=== PATIENT | female | born 1940 | race Caucasian/White ===

== ENCOUNTER 2021-08-07 00:42 | Inpatient (IN) | payer MEDICARE, OTHER ==
[~2021-08-07] VITALS: Ht 170.2 cm; Wt 60.3 kg
[~2021-08-07 00:42] MED LIST: ASPI-495 PO; HYDR500C; VALS40TA4; [UNRECOGNIZED DRUG - REMARK]
[2021-08-07] MEDS ORDERED: ASPIRIN 325 MG TABLET PO ONE (01:00)
--- NOTE | 2021-08-07 01:04 | NUR ---
BIBRA FROM HOME, PT A/O X 3, C/O HIGH BP AT HOME, NOW HAS LEFT SIDED CP WITH HEADACHE.
--- NOTE | 2021-08-07 01:14 | NUR ---
COVID SWAB COLLECTED AND SENT
--- NOTE | 2021-08-07 01:14 | NUR ---
LABS COLLECTED AND SENT
[2021-08-07 01:31] LABS: BASOPHILS % (AUTO) 0.1 % (0.0-2.0); EOSINOPHILS % (AUTO) 0.2 % (0.0-6.0); HEMATOCRIT 35 % (33-45); HEMOGLOBIN 11.8 g/dL (11.5-14.8); LYMPHOCYTES # (AUTO) 0.6 K/uL (0.8-4.8); MEAN CORPUSCULAR HGB CONC 34 g/dl (31.0-36.0); MEAN CORPUSCULAR VOLUME 123 fL (82-100); MONOCYTES # (AUTO) 0.1 K/uL (0.1-1.30); MONOCYTES % (AUTO) 0.9 % (2.0-12.0); NEUTROPHILS # (AUTO) 7.3 K/uL (1.8-8.9); NEUTROPHILS % (AUTO) 90.8 % (43.0-81.0); PLATELET COUNT (AUTO) 265 K/uL (150-450); RED BLOOD CELL COUNT(AUTO) 2.86 MIL/uL (4.0-5.2)
[2021-08-07 01:43] LABS: CALCIUM, SERUM 8.6 mg/dL (8.5-10.1); CARBON DIOXIDE 28 mmol/L (21-32); CHLORIDE 102 mmol/L (98-107); CREATININE 0.7 mg/dL (0.6-1.3); GLUCOSE 137 mg/dL (74-106); POTASSIUM 3.7 mmol/L (3.5-5.1); SODIUM SERUM 137 mmol/L (136-145); UREA NITROGEN, BLOOD 23 mg/dL (7-18)
[2021-08-07 01:50] LABS: D-DIMER 0.53 mg/L(FEU (0.17-0.50)
[2021-08-07 01:53] LABS: ALANINE AMINOTRANSFERASE 32 U/L (12-78); ALBUMIN 3.4 g/dL (3.4-5.0); ALKALINE PHOSPHATASE 69 U/L (46-116); ASPARTATE AMINOTRANSFERASE 19 U/L (15-37); BILIRUBIN,DIRECT 0.2 mg/dL (0.0-0.2); BILIRUBIN,TOTAL 0.7 mg/dL (0.2-1.0); TOTAL PROTEIN, SERUM 6.9 g/dL (6.4-8.2)
--- NOTE | 2021-08-07 02:11 | NUR ---
Pt out to CT
--- NOTE | 2021-08-07 04:09 | NUR ---
REPORT GIVEN TO MICHAEL DODSON
--- NOTE | 2021-08-07 04:12 | NUR ---
PT TRANSFERRED VIA ACLS
[2021-08-07 04:25] VITALS: BP 127/64
--- NOTE | 2021-08-07 04:25 | NUR ---
RN NOTES ADMITTED A 81 Y/O FEMALE PATIENT FROM HOME WITH CC OF HIGH BP AND CHEST PAIN FROM ER VIA GURNEY. PATIENT IS A/O X4 ABLE TO MAKE NEEDS KNOWN BELARUSIAN SPEAKING. VITAL SIGNS TAKEN AND RECORDED AFEBRILE. SAFELY TRANSFER TO BED VIA GURNEY. NO CHEST PAIN NO SOB NOTED AT THIS TIME. PATIENT WITH IV ACCESS AR L AC #22 PATENT FLUSHES WELL. WITH OXYGEN INHALATION AT 2 LPM SATING 100%. COMPLETE BODY ASSESSMENT DONE NO SKIN ISSUE NOTED. BELONGINGS ACCOUNTED AND CHECKED. ALL SAFETY MEASURES IN PLACE AT ALL TIMES, HOB ELEVATED. CALL LIGHT WITHIN REACH.WILL CLOSELY MONITOR THE PATIENT
[2021-08-07] MEDS ORDERED: NITROGLYCERIN 0.4 MG/TAB BOTTLE SL PRN (04:30)
[2021-08-07] MEDS ORDERED: MAGNESIUM HYDROXIDE 30 ML UDC PO PRN (04:30)
[2021-08-07] MEDS ORDERED: MAG HYDROX/AL HYDROX/SIMETH 30 ML UDC PO PRN (04:30)
[2021-08-07] MEDS ORDERED: ONDANSETRON HCL/PF 4 MG/2 ML VIAL IVP PRN (04:30)
[2021-08-07] MEDS ORDERED: HYDROCODONE/APAP 5/325MG TABLET PO PRN (04:30)
[2021-08-07] MEDS ORDERED: ACETAMINOPHEN 325 MG TABLET PO PRN (04:30)
[2021-08-07] MEDS ORDERED: MORPHINE SULFATE INJ 2 MG/ML DISP.SYRIN IV PRN (04:30)
[2021-08-07] MEDS ORDERED: Z GUARD REMEDY 4 OZ OINT TP PRN (04:30)
--- NOTE | 2021-08-07 07:01 | NUR ---
RN NOTES PATIENT REMAINS STABLE THIS SHIFT NO SIGNIFICANT CHANGES IN HEALTH CONDITION. STILL WITH IV ACCESS AT L AC PATENT FLUSHES WELL. ALL SAFETY MEASURES IN PLACE AT ALL TIMES. HOB ELEVATED. CALL LIGHT WITHIN REACH. WILL ENDORSED TO MORNING RN FOR MURIEL
--- NOTE | 2021-08-07 07:14 | NUR ---
RN OPENING NOTES RECEIVED PT IN BED AWAKE, A/O X 3 MONTSERRATIAN SPEAKING. PT IS ON 2L O2 VIA NC SATING AT 98%. IV ACCESS NOTED ON L AC 22G. ALL SAFETY MEASURES IN PLACE, BED IN LOWEST LOCKED POSITION, SR UP X 2, CALL LIGHT WITHIN REACH. WILL CONTINUE TO MONITOR THROUGHOUT SHIFT.
[2021-08-07] MEDS ORDERED: DULO30CA52 PO (07:27)
[2021-08-07] MEDS ORDERED: HYDR500C PO (07:27)
[2021-08-07] MEDS ORDERED: FAMO20TA8 PO (07:27)
[2021-08-07] MEDS ORDERED: DEXL60CA3 PO (07:27)
[2021-08-07] MEDS ORDERED: VALA500T40 PO (07:27)
[2021-08-07] MEDS ORDERED: METO50TA16 PO (07:27)
[2021-08-07] MEDS ORDERED: CELE-85 PO (07:27)
[2021-08-07] MEDS ORDERED: PREG25CA51 PO (07:27)
[2021-08-07] MEDS ORDERED: VALS160T2 PO (07:27)
[2021-08-07] MEDS ORDERED: ICOS1CAP PO (07:27)
[2021-08-07] MEDS ORDERED: FERR325T24 PO (07:27)
[2021-08-07] MEDS ORDERED: SITA1TAB2 PO (07:27)
[2021-08-07] MEDS ORDERED: COLC0.6C3 PO (07:27)
[2021-08-07] MEDS ORDERED: MAGN500T2 PO (07:27)
[2021-08-07] MEDS ORDERED: PANTOPRAZOLE 40 MG TABLET.DR PO SCH (07:30)
[2021-08-07 08:00] VITALS: BP 132/66
[2021-08-07 08:20] LABS: LYMPHOCYTES % (MANUAL) 8 % (16-48); NEUTROPHILS % (MANUAL) 92 (42-76)
[2021-08-07] MEDS ORDERED: METOPROLOL TARTRATE 50 MG TABLET PO SCH (09:00)
[2021-08-07] MEDS ORDERED: PREGABALIN 25 MG CAPSULE PO SCH (09:00)
[2021-08-07] MEDS ORDERED: ASPIRIN 81 MG TAB.CHEW PO SCH (09:00)
[2021-08-07] MEDS ORDERED: Medication Not On Formulary EA (Icosapent Ethyl (Vascepa) 2 CAP) PO SCH (09:00)
[2021-08-07] MEDS ORDERED: CELECOXIB 100 MG CAPSULE PO SCH (09:00)
[2021-08-07] MEDS ORDERED: FAMOTIDINE (20 MG) 20 MG TABLET PO SCH (09:00)
[2021-08-07] MEDS ORDERED: LINAGLIPTIN 5 MG TABLET PO SCH (09:00)
[2021-08-07] MEDS ORDERED: FERROUS SULFATE (325 MG) 325 MG/TAB TABLET PO SCH (09:00)
[2021-08-07] MEDS ORDERED: METFORMIN 500 MG TABLET PO SCH (09:00)
[2021-08-07] MEDS ORDERED: DULOXETINE HCL 30 MG CAPSULE.DR PO SCH (09:00)
[2021-08-07] MEDS ORDERED: VALACYCLOVIR HCL 500 MG TABLET PO SCH (09:00)
[2021-08-07] MEDS ORDERED: MAGNESIUM OXIDE 400 MG TABLET PO SCH (09:00)
[2021-08-07] MEDS ORDERED: COLCHICINE 0.6 MG TABLET PO SCH (09:00)
[2021-08-07] MEDS ORDERED: ASPIRIN EC 81 MG TABLET.DR PO SCH (09:00)
[2021-08-07] MEDS ORDERED: HYDROXYUREA 500 MG CAPSULE PO SCH (09:00)
[2021-08-07 09:04] LABS: THYROID STIMULATING HORMONE 4.642 uIU/mL (0.358-3.74)
[2021-08-07 09:53] VITALS: BP 132/66
--- NOTE | 2021-08-07 10:46 | NUR ---
RN NOTES PT WISHES TO LEAVE AMA. MD ROBLEDO D NOTIFIED. AMA PAPERWORK SIGNED. LATEST BP IS 129/58. DAUGHTER WILL PERFORMANCE IMPROVEMENT MANAGER PT AT APPROX 1100.
--- NOTE | 2021-08-07 11:02 | NUR ---
RN NOTES PT LEFT UNIT AT 1100 IN STABLE CONDITION, DAUGHTER PICKED UP PT AT 1102.
[2021-08-08] MEDS ORDERED: PANTOPRAZOLE 40 MG TABLET.DR PO SCH (07:30)
[2021-08-08] MEDS ORDERED: VALSARTAN 80 MG TABLET PO SCH (09:00)
== END 2021-08-07 10:57 | disposition left against medical advice (07) | DRG 313 ==
LOC: ER 00:47 → TELE1 03:19
PROVIDERS: ADMIT Internal Medicine; ATTEND Internal Medicine
DX: R07.9 Chest pain, unspecified (principal); Z20.822 Contact with and (suspected) exposure to COVID-19; I10 Essential (primary) hypertension; Z88.8 Allergy status to other drugs, medicaments and biological substances; Z79.82 Long term (current) use of aspirin; Z79.899 Other long term (current) drug therapy; D45 Polycythemia vera
CPT/HCPCS: 36415; 71045-TC; 80048-TC; 80061-TC; 80076-TC; 82962-TC; 83880; 84439-TC; 84443-TC; 84484-TC; 85025-TC; 85378-TC; 85730-TC; 87081-TC; C9803; G0378

== ENCOUNTER 2022-01-17 08:52 | Inpatient (IN) | payer MEDICARE, OTHER ==
[~2022-01-17] VITALS: Ht 170.2 cm; Wt 63.5 kg
[~2022-01-17 08:52] MED LIST changes: +CELE-85 PO; +COLC0.6C3 PO; +DEXL60CA3 PO; +DULO30CA52 PO; +FAMO20TA8 PO; +FERR325T24 PO; -HYDR500C; +HYDR500C PO; +ICOS1CAP PO; +MAGN500T2 PO; +METO50TA16 PO; +PREG25CA51 PO; +SITA1TAB2 PO; +VALA500T40 PO; +VALS160T2 PO; -VALS40TA4; -[UNRECOGNIZED DRUG - REMARK]
--- NOTE | 2022-01-17 08:52 | NUR ---
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 PT STATES A 5/10 PAIN ON P/S PT ATTACHED TO MONITOR, CHANGED INTO HOSPITAL GOWN. VITALS ARE WITHIN NORMAL LIMITS. AWAITING MD ORDERS.
--- NOTE | 2022-01-17 09:08 | NUR ---
IV ESTABLIHSED L AC 20G. LABS DRAWN AND COLLECTED AT BEDSIDE.
[2022-01-17 09:15] LABS: BASOPHILS % (AUTO) 0.1 % (0.0-2.0); EOSINOPHILS % (AUTO) 0.3 % (0.0-6.0); HEMATOCRIT 41 % (33-45); HEMOGLOBIN 13.4 g/dL (11.5-14.8); LYMPHOCYTES # (AUTO) 0.7 K/uL (0.8-4.8); LYMPHOCYTES % (AUTO) 7.6 % (20.0-44.0); MEAN CORPUSCULAR HGB CONC 33 g/dl (31.0-36.0); MEAN CORPUSCULAR VOLUME 116 fL (82-100); MONOCYTES # (AUTO) 0.1 K/uL (0.1-1.30); MONOCYTES % (AUTO) 1.2 % (2.0-12.0); NEUTROPHILS # (AUTO) 8.2 K/uL (1.8-8.9); NEUTROPHILS % (AUTO) 90.8 % (43.0-81.0); PLATELET COUNT (AUTO) 325 K/uL (150-450); RED BLOOD CELL COUNT(AUTO) 3.52 MIL/uL (4.0-5.2); WHITE BLOOD COUNT (AUTO) 9.1 K/uL (4.3-11.0)
--- NOTE | 2022-01-17 09:17 | NUR ---
MOVE SHEET SUBMITTED.
[2022-01-17 09:44] LABS: CARBON DIOXIDE 29 mmol/L (21-32); CHLORIDE 103 mmol/L (98-107); CREATININE 0.7 mg/dL (0.6-1.3); GLUCOSE 143 mg/dL (74-106); POTASSIUM 3.7 mmol/L (3.5-5.1); SODIUM SERUM 136 mmol/L (136-145); UREA NITROGEN, BLOOD 13 mg/dL (7-18)
[2022-01-17] MEDS ORDERED: ASPIRIN 81 MG TAB.CHEW ONE (09:59)
[2022-01-17] MEDS ORDERED: ASPIRIN 81 MG TAB.CHEW PO ONE (10:00)
[2022-01-17] MEDS ORDERED: Z GUARD REMEDY 4 OZ OINT TP PRN (12:00)
[2022-01-17] MEDS ORDERED: MORPHINE SULFATE INJ 2 MG/ML DISP.SYRIN IV PRN (12:00)
[2022-01-17] MEDS ORDERED: ACETAMINOPHEN 325 MG TABLET PO PRN (12:00)
[2022-01-17] MEDS ORDERED: ONDANSETRON HCL/PF 4 MG/2 ML VIAL IVP PRN (12:00)
[2022-01-17] MEDS ORDERED: TEMAZEPAM 15 MG CAPSULE PO PRN (12:00)
[2022-01-17] MEDS ORDERED: MAGNESIUM HYDROXIDE 30 ML UDC PO PRN (12:00)
[2022-01-17] MEDS ORDERED: MAG HYDROX/AL HYDROX/SIMETH 30 ML UDC PO PRN (12:00)
[2022-01-17] MEDS ORDERED: VALS160T2 PO (12:01)
[2022-01-17] MEDS ORDERED: VALA500T40 PO (12:01)
[2022-01-17] MEDS ORDERED: FAMO20TA8 PO (12:01)
[2022-01-17] MEDS ORDERED: ASPI-1420 PO (12:01)
[2022-01-17] MEDS ORDERED: DEXL60CA3 PO (12:01)
[2022-01-17] MEDS ORDERED: COLC0.6C3 PO (12:01)
[2022-01-17] MEDS ORDERED: SOLI10TA7 PO (12:01)
[2022-01-17] MEDS ORDERED: CELE-85 PO (12:01)
[2022-01-17] MEDS ORDERED: LIPA1CAP15 PO (12:01)
[2022-01-17] MEDS ORDERED: LORA-259 PO (12:01)
[2022-01-17] MEDS ORDERED: DULO30CA52 PO (12:01)
[2022-01-17] MEDS ORDERED: ALBU18HF2 IH (12:01)
[2022-01-17] MEDS ORDERED: CYCL30DR EACHEYE (12:01)
[2022-01-17] MEDS ORDERED: MECL-182 PO (12:01)
[2022-01-17] MEDS ORDERED: HYDR500C PO (12:01)
[2022-01-17] MEDS ORDERED: HYDR453.3 TD (12:01)
[2022-01-17] MEDS ORDERED: LIDO700A30 TP (12:01)
[2022-01-17] MEDS ORDERED: PROP15DR EACHEYE (12:01)
[2022-01-17] MEDS ORDERED: METO50TA16 PO (12:01)
[2022-01-17] MEDS ORDERED: CHOL100043 PO (12:01)
[2022-01-17] MEDS ORDERED: DICL100G26 TD (12:01)
[2022-01-17] MEDS ORDERED: LORA10TA7 PO (12:01)
[2022-01-17] MEDS ORDERED: MAGN500T2 PO (12:01)
[2022-01-17] MEDS ORDERED: FERR325T24 PO (12:01)
[2022-01-17] MEDS ORDERED: GABA300C PO (12:01)
[2022-01-17] MEDS ORDERED: TERB250T52 PO (12:03)
[2022-01-17] MEDS ORDERED: SITA1TAB2 PO (12:03)
[2022-01-17] MEDS ORDERED: FLUC200T PO (12:03)
[2022-01-17] MEDS ORDERED: ITRA100C2 PO (12:03)
[2022-01-17] MEDS ORDERED: MORPHINE SULFATE INJ 2 MG/ML DISP.SYRIN ONE (13:31)
--- NOTE | 2022-01-17 13:42 | NUR ---
PT REFUSED MORPHINE IV FOR PAIN; FAMILY TRANSLATED FOR PT AND STATED THAT PT DOES NOT FEEL GOOD WHEN GETTING MORPHINE.
--- NOTE | 2022-01-17 14:14 | NUR ---
SNACKS PROVIDED TO PT AT BEDSIDE, MARKY WELL
--- NOTE | 2022-01-17 16:48 | NUR ---
BED GIVEN 311-1
[2022-01-17] MEDS ORDERED: METOPROLOL TARTRATE 25 MG TABLET PO ONE (17:00)
--- NOTE | 2022-01-17 17:14 | NUR ---
REPORT GIVEN TO NEEL DODSON ROOM 311-1 FOR MURIEL
[2022-01-17] MEDS ORDERED: IOHEXOL-350 100 ML VIAL IV ONE (17:24)
[2022-01-17] MEDS ORDERED: IV NS 0.9% 250 ML IV ONE (17:24)
[2022-01-17] MEDS ORDERED: CT SWABBABLE VALVE TRANS SET 1 EA INFUS.SET MC ONE (17:24)
--- NOTE | 2022-01-17 17:25 | NUR ---
CTA RN NOTES RECEIVED PT IN CT DEP. A/Ox4, BRITISH SPEAKING, ON RA, IV SITE G 18 ON LEFT AC , CLEAN ,DRY AND INTACT, PT MATT ANY DISTRESS AT TIMES, WILL CONTINUE TO MONITOR DURING CTA.
[2022-01-17] MEDS ORDERED: METOPROLOL TARTRATE INJ 5 MG/5 ML AMPUL ONE ×3 (17:37→17:53)
--- NOTE | 2022-01-17 18:15 | NUR ---
CTA RN NOTES CTA COMPLETED, BENIGNO TERRY , PT TOLERATED THE PROCEDURE WELL, MATT ANY DISTESS , PT TRANSFERRED TO ROOM ACCOMPANIED BY ER STAFF IN STABLE CONDITION.
--- NOTE | 2022-01-17 18:30 | NUR ---
SENIOR DIGITAL DESIGNER NOTES RECEIVED PATIENT FROM ER ENDORSED BY [place] VIA STRETCHER. PATIENT IS A/O X4, ALBANIAN SPEAKING. ON ROOM AIR SATURATING AT 96%. NO SOB NOTED. NOT IN DISTRESS. WITH NO COMPLAINTS OF CHEST PAIN OR ANY DISCOMFORT AT THIS TIME. WITH IV ACCESS AT THE LEFT AC G20 SALINE LOCKED, PATENT AND INTACT. ON TELE MONITOR CURRENTLY READING SINUS RHYTHM AT 84BPM. SAFETY MEASURES IN PLACED. CALL LIGHT WITHIN REACH. BED ON LOWEST LOCKED POSITION, SIDE RAILS UP X2. WILL CONTINUE TO MONITOR.
[2022-01-17 20:00] VITALS: BP 111/54
--- NOTE | 2022-01-17 20:56 | NUR ---
MS/TELE/RN AT INITIAL SHIFT ROUNDS, PATIENT WAS IN BED AWAKE, ALERT ORIENTED, NO C/O PAIN, NO DISTRESS NOTED, CALL LIGHT IN REACH, FALL PRECAUTIONS PER PROTOCOL IMPLEMENTED, WILL MONITOR.
[2022-01-17] MEDS ORDERED: ATORVASTATIN 40 MG TABLET PO SCH (22:00)
--- NOTE | 2022-01-17 23:13 | NUR ---
MS/TELE/RN PATIENT IS SLEEPING, NO SIGNS OF DISTRESS NOTED, CALL LIGHT IN REACH, WILL CONTINUE TO MONITOR.
--- NOTE | 2022-01-17 23:50 | NUR ---
MS/TELE/RN REFUSED MIDNIGHT VITAL SIGNS PER STOCK CLIPPER.
--- NOTE | 2022-01-18 05:59 | NUR ---
MS/TELE/RN PATIENT APPEARS SLEEPING, NO SIGNS OF DISTRESS NOTED, CALL LIGHT IN REACH, ALL NEEDS ATTENDED AT THIS TIME, WILL CONTINUE TO MONITOR.
[2022-01-18 06:04] LABS: BASOPHILS % (AUTO) 0.1 % (0.0-2.0); EOSINOPHILS % (AUTO) 0.3 % (0.0-6.0); HEMATOCRIT 38 % (33-45); HEMOGLOBIN 12.5 g/dL (11.5-14.8); LYMPHOCYTES % (AUTO) 11.1 % (20.0-44.0); MEAN CORPUSCULAR HGB CONC 33 g/dl (31.0-36.0); MEAN CORPUSCULAR VOLUME 117 fL (82-100); MONOCYTES # (AUTO) 0.1 K/uL (0.1-1.30); NEUTROPHILS % (AUTO) 87.5 % (43.0-81.0); PLATELET COUNT (AUTO) 318 K/uL (150-450); RED BLOOD CELL COUNT(AUTO) 3.26 MIL/uL (4.0-5.2); WHITE BLOOD COUNT (AUTO) 9.1 K/uL (4.3-11.0)
[2022-01-18 06:25] LABS: CHOLESTEROL 153 mg/dL (<200); HDL CHOLESTEROL 35 mg/dL (40-60); LDL 97 mg/dL (0-99); THYROID STIMULATING HORMONE 3.924 uIU/mL (0.358-3.74); TRIGLYCERIDES 100 mg/dL (30-150)
[2022-01-18 06:49] LABS: CALCIUM, SERUM 8.7 mg/dL (8.5-10.1); CARBON DIOXIDE 27 mmol/L (21-32); CHLORIDE 100 mmol/L (98-107); CREATININE 0.7 mg/dL (0.6-1.3); GLUCOSE 132 mg/dL (74-106); MAGNESIUM 2.1 mg/dL (1.8-2.4); PHOSPHORUS 3.6 mg/dL (2.5-4.9); POTASSIUM 3.6 mmol/L (3.5-5.1); SODIUM SERUM 129 mmol/L (136-145); UREA NITROGEN, BLOOD 15 mg/dL (7-18)
[2022-01-18] MEDS ORDERED: PANTOPRAZOLE 40 MG TABLET.DR PO SCH (07:30)
--- NOTE | 2022-01-18 07:35 | NUR ---
CABLE MACHINE OPERATOR OPENING NOTES RECEIVED PATIENT IN BED, AOX4, AMBULATORY, STEADY GAIT, PATIENT SPEAKS NICAR[place] ONLY, PT ON RA, SATURATING AT 96%, NO SOB, NO DISTRESS NOTED. PATIENT ISNT COMPLAINING OF CHEST PAIN OR ANY DISCOMFORT AT THIS TIME. WITH IV ACCESS AT THE LEFT ANTECUBITAL G#20 SALINE LOCKED, PATENT AND INTACT. TELE MONITORING CURRENTLY READS SINUS RHYTHM WITH PACS AT 75 BPM. SAFETY MEASURES IN PLACED. CALL LIGHT AND TRAY WITHIN REACH. BED ON LOWEST LOCKED POSITION, SIDE RAILS UP X2. WILL CONTINUE TO MONITOR DURING MY SHIFT.
[2022-01-18 08:00] VITALS: BP 130/56
[2022-01-18] MEDS ORDERED: ASPIRIN 81 MG TAB.CHEW PO SCH (09:00)
[2022-01-18] MEDS ORDERED: ATOR40TA PO (10:49)
--- NOTE | 2022-01-18 13:50 | NUR ---
RETAIL SEASONAL SPECIALIST CLOSING NOTES PT DISCHARGED TO HOME IN STABLE CONDITION, PT AOX4, POLISH SPEAKING, ABLE TO MAKE NEEDS KNOWN, ON ROOM AIR SATURATING WELL WITH SPO2 OF 96%. NO SOB, NO DISTRESS NOTED. PATIENT ISNT COMPLAINING OF CHEST PAIN OR ANY DISCOMFORT AT THIS TIME NOR ANY KIND OF DISTRESS. LAST TELE READING WAS SINUS RHYTHM WITH PACS WITH 75 BPM. VS TAKEN, STABLE, AND RECORDED. IV ACCESS AT THE LEFT ANTECUBITAL G#20 SALINE LOCKED REMOVED WITH NO ACTIVE BLEEDING NOTED. DRY DRESSING APPLIED AT SITE. DISCHARGE INSTRUCTIONS GIVEN TO NEO LU. ALL DUE MEDS GIVEN, ALL NEEDS MET. PATIENT LEFT THE UNIT WITH DAUGHTER AT 1340 WITH DAUGHTER. CHARGE NURSE AND MD AWARE.
== END 2022-01-18 13:45 | disposition home or self-care (01) | DRG 206 ==
LOC: ER 09:00 → TELE 16:57
PROVIDERS: ADMIT Nurse Practitioner Acute Care; ATTEND Student in an Organized Health Care Education/Training Program
DX: M94.0 Chondrocostal junction syndrome [Tietze] (principal); E11.9 Type 2 diabetes mellitus without complications; E78.5 Hyperlipidemia, unspecified; I10 Essential (primary) hypertension; I25.2 Old myocardial infarction; I44.7 Left bundle-branch block, unspecified; D45 Polycythemia vera; Z20.822 Contact with and (suspected) exposure to COVID-19; Z79.84 Long term (current) use of oral hypoglycemic drugs
CPT/HCPCS: 36415; 71045-TC; 75574; 80048-TC; 80061-TC; 83735-TC; 84100-TC; 84443-TC; 84484-TC; 85025-TC; 87081-TC; 93307-TC; C9803; G0378; J2270; J3490; J7050; Q9967